=== PATIENT | female | born 1955 | race Caucasian/White ===

== ENCOUNTER → 2023-12-23 15:15 | Outpatient (REF) | payer MEDICARE, SELFPAY ==
[2023-12-23 15:38] LABS: % Basophils 0.2 % (0-2); % Eosinophils 1.1 % (0-6); % Immature Granulocytes 0.2 % (0-0.5); % Lymphocytes 38.8 % (20.5-51.1); % Monocytes 7.8 % (1.7-9.3); % Neutrophils 51.9 % (42.2-75.2); Absolute Eosinophils 0.1 10^3/uL (0-0.7); Absolute Lymphocytes 1.7 10^3/uL (1.2-3.4); Absolute Monocytes 0.4 10^3/uL (0.1-0.6); Absolute Neutrophils 2.3 10^3/uL (1.4-6.5); Hematocrit 38.2 % (37.0-47.0); Hemoglobin 12.9 g/dL (12.0-16.0); Mean Corp Hgb Conc. 33.8 g/dL (33.0-37.0); Mean Corpuscular Hgb 29.7 pg (27.0-31.0); Mean Corpuscular Volume 87.8 fL (81.0-99.0); Mean Platelet Volume 11.8 fL (7.4-10.4); Nucleated Red Blood Cells % 0 %; Platelet Count 168 10^3/uL (130-400); Red Blood Cell Count 4.35 10^6/uL (4.20-5.40); Red Cell Dist. Width 14.3 % (11.5-14.5); White Blood Cell Count 4.5 10^3/uL (4.8-10.8)
[2023-12-23 16:01] LABS: ALT (SGPT) 28 U/L (0-35); AST (SGOT) 35 U/L (14-36); Alkaline Phosphatase 66 U/L (38-126); Blood Urea Nitrogen 25 mg/dl (7-17); Carbon Dioxide 31 mmol/L (22-30); Chloride 106 mmol/L (98-107); Direct Bilirubin 0.4 mg/dl (0.0-0.4); Glucose 86 mg/dl (70-99); Sodium 138 mmol/L (135-145); Total Bilirubin 0.8 mg/dl (0.2-1.3); Total Protein 6.7 g/dl (6.3-8.2); eGFR > 60.00
== END ==
LOC: REG 15:15
PROVIDERS: ATTENDING PHYSICIAN Physician Assistant
DX: R79.89 Other specified abnormal findings of blood chemistry (principal); R19.00 Intra-abdominal and pelvic swelling, mass and lump, unspecified site
CPT/HCPCS: 36415; 80053; 82248; 85025

== ENCOUNTER → 2023-12-25 14:59 | Outpatient (REF) | payer MEDICARE, SELFPAY ==
[2023-12-25 16:38] LABS: HDL Cholesterol 85 mg/dl; LDL Cholesterol, Calculated 90 mg/dl; Total Cholesterol 187 mg/dl (50-199); Triglyceride 64 mg/dl (10-149); Very Low Density Lipoprotein 12 mg/dl (0-30)
== END ==
LOC: REG 14:59
PROVIDERS: ATTENDING PHYSICIAN Physician Assistant
DX: E78.5 Hyperlipidemia, unspecified (principal); R79.89 Other specified abnormal findings of blood chemistry
CPT/HCPCS: 36415; 80061

== ENCOUNTER → 2024-02-26 12:34 | Outpatient (REF) | payer MEDICARE, SELFPAY ==
[2024-02-26 13:43] LABS: % Basophils 0.3 % (0-2); % Eosinophils 1.6 % (0-6); % Immature Granulocytes 0.3 % (0-0.5); % Monocytes 9.9 % (1.7-9.3); % Neutrophils 49.9 % (42.2-75.2); Absolute Eosinophils 0.1 10^3/uL (0-0.7); Absolute Lymphocytes 1.5 10^3/uL (1.2-3.4); Absolute Monocytes 0.4 10^3/uL (0.1-0.6); Absolute Neutrophils 1.9 10^3/uL (1.4-6.5); Hemoglobin 14.1 g/dL (12.0-16.0); Mean Corpuscular Hgb 28.4 pg (27.0-31.0); Mean Corpuscular Volume 88.5 fL (81.0-99.0); Mean Platelet Volume 12.1 fL (7.4-10.4); Nucleated Red Blood Cells % 0 %; Platelet Count 152 10^3/uL (130-400); Red Blood Cell Count 4.97 10^6/uL (4.20-5.40); Red Cell Dist. Width 13.7 % (11.5-14.5); White Blood Cell Count 3.8 10^3/uL (4.8-10.8)
[2024-02-26 14:17] LABS: ALT (SGPT) 41 U/L (0-35); AST (SGOT) 45 U/L (14-36); Alkaline Phosphatase 52 U/L (38-126); Blood Urea Nitrogen 26 mg/dl (7-17); Calcium 9.5 mg/dl (8.4-10.2); Carbon Dioxide 30 mmol/L (22-30); Chloride 104 mmol/L (98-107); Glucose 86 mg/dl (70-99); HDL Cholesterol 65 mg/dl; LDL Cholesterol, Calculated 37 mg/dl; Sodium 139 mmol/L (135-145); Total Bilirubin 0.7 mg/dl (0.2-1.3); Total Cholesterol 116 mg/dl (50-199); Total Protein 6.7 g/dl (6.3-8.2); Triglyceride 72 mg/dl (10-149); Very Low Density Lipoprotein 14 mg/dl (0-30); eGFR > 60.00
[2024-02-26 14:21] LABS: Potassium 4.4 mmol/L (3.5-5.1)
== END ==
LOC: REG 12:34
PROVIDERS: ATTENDING PHYSICIAN Physician Assistant
DX: E78.2 Mixed hyperlipidemia (principal); I25.10 Atherosclerotic heart disease of native coronary artery without angina pectoris; R79.89 Other specified abnormal findings of blood chemistry
CPT/HCPCS: 36415; 80053; 80061; 85025

== ENCOUNTER → 2024-10-07 14:21 | Outpatient (REF) | payer MEDICARE, SELFPAY ==
[2024-10-07 16:25] LABS: % Basophils 0.2 % (0-2); % Eosinophils 0.8 % (0-6); % Immature Granulocytes 0.4 % (0-0.5); % Lymphocytes 31.3 % (20.5-51.1); % Monocytes 7.7 % (1.7-9.3); % Neutrophils 59.6 % (42.2-75.2); Absolute Lymphocytes 1.6 10^3/uL (1.2-3.4); Absolute Monocytes 0.4 10^3/uL (0.1-0.6); Hematocrit 44.1 % (37.0-47.0); Mean Corp Hgb Conc. 31.7 g/dL (33.0-37.0); Mean Corpuscular Hgb 28.5 pg (27.0-31.0); Mean Corpuscular Volume 89.6 fL (81.0-99.0); Mean Platelet Volume 12.4 fL (7.4-10.4); Nucleated Red Blood Cells % 0 %; Platelet Count 148 10^3/uL (130-400); Red Blood Cell Count 4.92 10^6/uL (4.20-5.40); Red Cell Dist. Width 14.1 % (11.5-14.5)
[2024-10-07 16:40] LABS: Alkaline Phosphatase 51 U/L (38-126); Blood Urea Nitrogen 25 mg/dl (7-17); Carbon Dioxide 29 mmol/L (22-30); Chloride 104 mmol/L (98-107); Glucose 85 mg/dl (70-99); Potassium 4.5 mmol/L (3.5-5.1); Sodium 143 mmol/L (135-145); eGFR > 60.00
[2024-10-07 16:41] LABS: ALT (SGPT) 31 U/L (0-35); AST (SGOT) 38 U/L (14-36); Albumin 4.3 g/dl (3.5-5.0); Calcium 8.9 mg/dl (8.4-10.2); HDL Cholesterol 83 mg/dl; LDL Cholesterol, Calculated 58 mg/dl; Total Bilirubin 0.8 mg/dl (0.2-1.3); Total Cholesterol 151 mg/dl (50-199); Total Protein 6.9 g/dl (6.3-8.2); Triglyceride 52 mg/dl (10-149); Very Low Density Lipoprotein 10 mg/dl (0-30)
[2024-10-07 17:12] LABS: TSH Reflex To Free T4 2.17 uIU/ml (0.47-4.68)
== END ==
LOC: REG 14:21
PROVIDERS: ATTENDING PHYSICIAN Physician Assistant
DX: R10.31 Right lower quadrant pain (principal); E78.2 Mixed hyperlipidemia; I25.10 Atherosclerotic heart disease of native coronary artery without angina pectoris; Z95.5 Presence of coronary angioplasty implant and graft; R79.89 Other specified abnormal findings of blood chemistry; Z13.29 Encounter for screening for other suspected endocrine disorder
CPT/HCPCS: 36415; 80053; 80061; 84443; 85025

== ENCOUNTER 2024-10-11 16:53 | Emergency (ER) | payer MEDICARE, SELFPAY ==
[2024-10-11 16:54] VITALS: BP 139/96
--- NOTE | 2024-10-11 17:41 | ED.GENMED ---
History of Present Illness
General
Chief Complaint: Eye Problems
Source: patient
Exam Limitations: none
Time Seen by Provider: 10/11/24 17:07
Nursing documentation reviewed up to this point in time: agreed with
History of Present Illness
History of Present Illness:
Patient states she was turning over a stool and was hit on right eye by leg of stool Notes lateral subconjunctival hemorrhage. Denies any vision changes. Brought to ED by spouse for eval. Injury occurred just [employer]
Past History
Past History
ED Past Medical History: CAD, GERD, Hypercholesterolemia, SC and Valvular disease (Aortic stenosis)
Social History
Tobacco: Non-smoker
Living: with family
Family History
Family History: CAD
Review of Systems
Review of Systems
Allergies reviewed?: Yes
All Other Systems: ROS reviewed and negative except as documented in HPI and ROS
Constitutional: Reports no symptoms
EENT: Reports other (small subconjuntival hemorrhage right lateral conjunctiva)
Respiratory: Reports no symptoms
Cardiac: Reports no symptoms
ABD/GI: Reports no symptoms
: Reports no symptoms
Musculoskeletal: Reports no symptoms
Skin: Reports no symptoms
Neurological: Reports no symptoms
Psychiatric: Reports no symptoms
Phy Exam
General Physical Exam
General Presentation: well appearing and no apparent distress
General age: appears stated age
General Skin: warm and dry
General Habitus: normal
General Mental: alert
Eye Exam
Eye Exam: PERRL, EOMI, globe normal and other (tonometry reading 18 right eye. Small conjunctival hemorrhage lateral conjunctiva right eye)
Cornea Exam: abrasion: Right (8 oclock)
Type of Exam: simple and fluorescein
Musculoskeletal Exam
Musculoskeletal Exam: full ROM
Skin Exam
Skin Exam: normal color, warm/dry and no rash
Psychiatric Exam
Psychiatric Exam: normal mood/affect
Course
Orders/Labs/Results
Orders:
Orders
10/11/24 17:32
Fluorescein Sodium [Ful-Kimberly] 1 mg .ROUTE .STK-MED ONE
Tetracaine HCl [Tetracaine 0.5% Ophthalmic Solution] 1 drop .ROUTE .STK-MED ONE
10/11/24 17:38
Tobramycin 0.3% [Tobrex 0.3% Eye Drops] See Dose Instructions OPHTH NOW STA
Vital Signs
Initial and Last Documented VS:
Initial Vital Signs
Temp Pulse Resp BP Pulse Ox
99.3 F 79 16 139/96 98
10/11/24 16:54 10/11/24 16:54 10/11/24 16:54 10/11/24 16:54 10/11/24 16:54
Last Documented Vital Signs
Temp Pulse Resp BP Pulse Ox
99.3 F 79 16 139/96 98
10/11/24 16:54 10/11/24 16:54 10/11/24 16:54 10/11/24 16:54 10/11/24 16:54
*Critical Care Note
Total Time (30-74mins, 75-104mins- exclusive of procedures): Not Applicable
ED Attending Note
-
Portions of this chart may have been created with voice recognition software.� Occasional wrong word or��sound alike� substitutions may have occurred due to the inherent limitations of voice recognition software.
Discharge Plan
Departure
Patient Disposition: Home (Routine Discharge)
Date of Disposition: 10/11/24
Time of Disposition: 17:38
Patient with high blood pressure during this ER visit?: No
Condition: Good
Covid-19: Not Applicable
Discharge Problem:
Abrasion, corneal, Subconjunctival hemorrhage
Instructions: Corneal Abrasion (DC), How to Use Eye Drops, Subconjunctival Hemorrhage
Prescriptions:
New
tobramycin 0.3 % drops
1 drp ophthalmic (eye) Q4HWA Qty: 5 0RF
No Action
cyanocobalamin (vitamin B-12) 1,000 MCG tablet
1,000 mcg PO DAILY
magnesium 250 MG tablet
500 mg PO DAILY
vzbeholtmni-hpdwmslbc-ngf C-Mn 1 TAB tablet
1 tab PO DAILY
cholecalciferol (vitamin D3) 1,000 UNITS tablet
1,000 units PO DAILY
multivitamin with folic acid [Tab-A-Freda] 1 TABLET tablet
1 tab PO DAILY
turmeric-turmeric root extract 1 EACH capsule
2 ea PO DAILY
atorvastatin 80 MG tablet
80 mg PO QPM Qty: 30 5RF
nitroglycerin 0.4 MG tablet, sublingual
0.4 mg sublingual [id number] PRN (Reason: chest pain) Qty: 25 3RF
aspirin 81 MG tablet,chewable
81 mg PO DAILY 0RF
metoprolol succinate 25 MG tablet extended release 24 hr
25 mg PO DAILY Qty: 30 5RF
ticagrelor [Brilinta] 90 MG tablet
90 mg PO BID Qty: 60 5RF
hydrocodone-acetaminophen 1 TABLET tablet
1 tab PO Q4HPRN PRN (Reason: pain) Qty: 12 0RF
Referrals:
Alba Paul MD [Non-Admitting Privileges] - Follow up in 2-3 days
Interventions
Interventions:
*Risk Screen - Suicide Last Done: 10/11/24 16:54
*General Assessment Last Done: 10/11/24 16:54
*Neglect/Abuse Screening Last Done: 10/11/24 16:54
ED- Fall Risk Assessment Last Done: 10/11/24 17:05
*Nursing Disposition Last Done: 10/11/24 17:48
Discharge Date and Time
Discharge Date/Time: 10/11/24 17:48
Print Language: CO[place] R[place]
[2024-10-11] MEDS: TOBREX 0.3% EYE DROPS 1 DROP OPHTH (17:45)
== END 2024-10-11 17:48 | disposition home or self-care (01) ==
LOC: EMR 16:53
PROVIDERS: EMERGENCY PHYSICIAN Emergency Medicine; FAMILY PHYSICIAN Physician Assistant
DX: S05.01XA Injury of conjunctiva and corneal abrasion without foreign body, right eye, initial encounter (principal); H11.31 Conjunctival hemorrhage, right eye; W22.09XA Striking against other stationary object, initial encounter; I25.10 Atherosclerotic heart disease of native coronary artery without angina pectoris; E78.00 Pure hypercholesterolemia, unspecified; I25.2 Old myocardial infarction; K21.9 Gastro-esophageal reflux disease without esophagitis
CPT/HCPCS: 99283

== ENCOUNTER → 2025-01-13 13:48 | Outpatient (REF) | payer MEDICARE, SELFPAY | LOC: RCS 13:48 | PROVIDERS: ATTENDING PHYSICIAN Internal Medicine Cardiovascular Disease; FAMILY PHYSICIAN Physician Assistant Medical | DX: Z95.2 Presence of prosthetic heart valve (principal); I25.10 Atherosclerotic heart disease of native coronary artery without angina pectoris; I44.2 Atrioventricular block, complete | CPT/HCPCS: 93306 ==

== ENCOUNTER 2025-03-23 23:06 | Day surgery (SDC) | payer MEDICARE, SELFPAY ==
[2025-03-23] VITALS (9 sets, daily range): BP systolic 100–177; BP diastolic 61–105
--- NOTE | 2025-03-23 07:37 | ED.GENMED ---
History of Present Illness
General
Chief Complaint: Abdominal Pain
Time Seen by Provider: 03/23/25 07:31
History of Present Illness
History of Present Illness:
69-year-old female with history of hypertension, hyperlipidemia, and coronary artery disease status post ME presents to the emergency department for evaluation of sudden onset of left lower quadrant/left pelvic pain that began this morning waking
her from sleep. Pain is sharp, constant, nonradiating. No fevers, chills, or lower urinary tract voiding symptoms. Reports multiple episodes of dry heaving as well. No history of abdominal surgery
Past History
Past History
ED Past Medical History: CAD, GERD, Hypercholesterolemia, ME and Valvular disease (Aortic stenosis)
Social History
Tobacco: Non-smoker
Living: with family
Family History
Family History: CAD
Review of Systems
Review of Systems
Allergies reviewed?: Yes
All Other Systems: ROS reviewed and negative except as documented in HPI and ROS
Phy Exam
Physical Exam
Physical Exam:
GEN: Well appearing, NAD, WDWN
HEENT: Oral mucosa moist, no scleral icterus
Cardiac: Regular rate
Lung: No respiratory distress, no tachypnea
Abdomen: Soft, grossly nontender to palpation, no rigidity
MSK: No gross deformity or injuries
Skin: Good color, no pallor or jaundice, no rashes
Neuro: AO x3, moves all extremities freely
Psych: Calm, cooperative
Course
Orders/Labs/Results
Orders:
Orders
03/23/25 07:29
Complete Blood Count/With Diff Urgent
Comprehensive Metabolic Panel Urgent
Lipase Urgent
03/23/25 07:36
CT Abd/pel Without Iv Or Oral Urgent
Comment:
Reason For Exam: LLQ pain
0.9% Sodium Chloride 1000 ml [Nss] 1,000 ml IV BOLUS
Ketorolac [Toradol] 15 mg IV NOW STA
Ondansetron Injectable [Zofran] 4 mg IV NOW STA
03/23/25 07:59
Morphine Sulfate 4 mg IV NOW STA
03/23/25 08:57
HYDROmorphone [Dilaudid] 0.5 mg IV NOW STA
03/23/25 10:17
Urinalysis Reflex To Culture Urgent
Date Specimen was Collected: 03/23/25
Time Specimen was Collected: 07:50
Urine Microscopic Reflex Cult Urgent
Urine Culture Urgent
RYAN Source: U
Specimen Description:
Date Specimen was Collected: 03/23/25
Time Specimen was Collected: 07:50
Abnormal Lab Results
03/23/25 03/23/25
07:29 10:17
MPV 11.7 H fL
(7.4-10.4)
Absolute Lymphs (auto) 3.8 H 10^3/uL
(1.2-3.4)
Absolute Monos (auto) 0.7 H 10^3/uL
(0.1-0.6)
Neutrophils % 39.0 L %
(42.2-75.2)
Potassium 3.4 L mmol/L
(3.5-5.1)
Chloride 108 H mmol/L
(98-107)
BUN 32 H mg/dl
(7-17)
Glucose 107 H mg/dl
(70-99)
Lipase 454 H U/L
(23-300)
Ur Occult Blood Reflex 4+ A
(Negative)
Leukocyte Esterase Rfl 1+ A
(Negative)
Urine RBC >100 A /HPF
(0-2)
Urine Albumin (Reflex) 2+ A
(Neg - Trace)
03/23/25 07:29
03/23/25 07:29
Vital Signs
Initial and Last Documented VS:
Initial Vital Signs
Pulse Resp BP Pulse Ox
105 20 177/105 94
03/23/25 07:17 03/23/25 07:17 03/23/25 07:17 03/23/25 07:17
Last Documented Vital Signs
Pulse Resp BP Pulse Ox
105 20 131/73 99
03/23/25 07:17 03/23/25 07:17 03/23/25 08:05 03/23/25 08:15
MDM/Problems Addressed
MDM/Problems Addressed:
Patient had persistent pain despite numerous doses of opioids and NSAIDs. She was seen in consultation by urology and the decision has been made to take her for operative intervention today. No indication for IV antibiotics at this point,
clinically stable
*Critical Care Note
Total Time (30-74mins, 75-104mins- exclusive of procedures): Not Applicable
ED Attending Note
-
Portions of this chart may have been created with voice recognition software.� Occasional wrong word or��sound alike� substitutions may have occurred due to the inherent limitations of voice recognition software.
Discharge Plan
Departure
Patient Disposition: OR
Date of Disposition: 03/23/25
Time of Disposition: 12:41
Presentation/result/management discussed w/ accepting MD/DO: [facility]
Discharge Problem:
Ureterolithiasis
Prescriptions:
No Action
cyanocobalamin (vitamin B-12) 1,000 MCG tablet
1,000 mcg PO DAILY
magnesium 250 MG tablet
500 mg PO DAILY
cholecalciferol (vitamin D3) 1,000 UNITS tablet
1,000 units PO DAILY
multivitamin with folic acid [Tab-A-Freda] 1 TABLET tablet
1 tab PO HS
nitroglycerin 0.4 MG tablet, sublingual
0.4 mg sublingual [id number] PRN (Reason: chest pain) Qty: 25 3RF
aspirin 81 MG tablet,chewable
81 mg PO DAILY 0RF
metoprolol succinate 25 MG tablet extended release 24 hr
25 mg PO DAILY Qty: 30 5RF
coenzyme Q10 [Co Q-10] 100 mg Capsule
100 mg PO HS
rosuvastatin 5 mg tablet
5 mg PO .Q48H IN THE EVENING
hyaluronate sodium-vit C 20-60 mg Capsule
1 cap PO DAILY
Referrals:
Bethanie Chandler PA-C [Family Provider] -
Interventions
Interventions:
*Risk Screen - Suicide Last Done: 03/23/25 07:17
*General Assessment Last Done: 03/23/25 07:17
*Neglect/Abuse Screening Last Done: 03/23/25 07:17
*ED- Fall Risk Assessment Last Done: 03/23/25 08:21
*ED COVID-19 Vaccine History Last Done: 03/23/25 08:21
KP-Apasvv-Mbwqaxhuay Assessment Last Done: 03/23/25 08:21
Discharge Date and Time
Print Language: FINNISH
[2025-03-23 07:39] LABS: % Basophils 0.3 % (0-2); % Eosinophils 1.8 % (0-6); % Immature Granulocytes 0.3 % (0-0.5); % Lymphocytes 49.4 % (20.5-51.1); % Monocytes 9.2 % (1.7-9.3); Absolute Eosinophils 0.1 10^3/uL (0-0.7); Absolute Lymphocytes 3.8 10^3/uL (1.2-3.4); Absolute Monocytes 0.7 10^3/uL (0.1-0.6); Hematocrit 41.3 % (37.0-47.0); Hemoglobin 13.8 g/dL (12.0-16.0); Mean Corp Hgb Conc. 33.4 g/dL (33.0-37.0); Mean Corpuscular Hgb 28.9 pg (27.0-31.0); Mean Corpuscular Volume 86.6 fL (81.0-99.0); Mean Platelet Volume 11.7 fL (7.4-10.4); Nucleated Red Blood Cells % 0 %; Platelet Count 167 10^3/uL (130-400); Red Blood Cell Count 4.77 10^6/uL (4.20-5.40); Red Cell Dist. Width 14.1 % (11.5-14.5); White Blood Cell Count 7.7 10^3/uL (4.8-10.8)
[2025-03-23] MEDS: ZOFRAN 4 MG IV ×2 (07:56→22:15)
[2025-03-23] MEDS: TORADOL 15 MG IV (07:56)
[2025-03-23] MEDS: NSS 1000 IV (07:56)
[2025-03-23] MEDS: MORPHINE SULFATE 4 MG IV (08:02)
[2025-03-23 08:16] LABS: ALT (SGPT) 25 U/L (0-35); AST (SGOT) 28 U/L (14-36); Alkaline Phosphatase 64 U/L (38-126); Blood Urea Nitrogen 32 mg/dl (7-17); Calcium 9.8 mg/dl (8.4-10.2); Carbon Dioxide 25 mmol/L (22-30); Chloride 108 mmol/L (98-107); Glucose 107 mg/dl (70-99); Lipase 454 U/L (23-300); Potassium 3.4 mmol/L (3.5-5.1); Sodium 143 mmol/L (135-145); Total Bilirubin 0.6 mg/dl (0.2-1.3); Total Protein 6.7 g/dl (6.3-8.2); eGFR > 60.00
[2025-03-23] MEDS: DILAUDID 0.5 MG IV (09:11)
[2025-03-23 10:27] LABS: Urine Albumin 2+ (Neg - Trace); Urine Bilirubin Negative (Negative); Urine Character Cloudy (Clear); Urine Color Yellow; Urine Glucose Negative (Negative); Urine Ketone Negative (Negative); Urine Leukocyte 1+ (Negative); Urine Nitrite Negative (Negative); Urine Occult Blood 4+ (Negative); Urine Urobilinogen Negative (Neg - 1+)
[2025-03-23 11:11] LABS: Urine Amorphous Seen
[2025-03-23 11:12] LABS: Urine Red Blood Cell >100 /HPF (0-2)
--- NOTE | 2025-03-23 17:10 | HP.FOC2 ---
Focused History & Physical
Chief Complaint
HPI:
Chief Complaint: L flank pain
HPI / Indication for Planned Procedure:
69-year-old female with history of hypertension, hyperlipidemia, and coronary artery disease status post LA presents to the emergency department for evaluation of sudden onset of left lower quadrant/left pelvic pain that began this morning waking
her from sleep. Pain is sharp, constant, nonradiating. No fevers, chills, or lower urinary tract voiding symptoms. Reports multiple episodes of dry heaving as well. No history of abdominal surgery
Found on CT to have moderate size L prox ureteral stones as well as a large L renal stone
Not able to get comfortable for trial of passage in the ER
No signs or criteria for sepsis
Prior hx of kidney stone 25 years ago
No other urologic hx
Relevant Past Medical History: Coronary Artery Disease and Other (kidney stone)
Relevant Social History: Negative
Relevant Family History: Negative
Relevant Past Surgical History: Negative
Review of Systems
Review of Pertinent Systems: All Systems Negative
Medication
See Medication form for detailed medications: Yes
Medication List (including Herbals & OTC):
cholecalciferol (vitamin D3) 25 mcg (1,000 unit) tablet 1,000 units PO DAILY Supplement 09/20/20
cyanocobalamin (vitamin B-12) 1,000 mcg tablet 1,000 mcg PO DAILY Supplement 09/20/20
magnesium 250 mg tablet 500 mg PO DAILY Supplement 09/20/20
multivitamin with folic acid 400 mcg tablet (Tab-A-Freda) 1 tab PO HS Supplement 09/20/20
aspirin 81 mg chewable tablet 81 mg PO DAILY 09/22/20
metoprolol succinate 25 mg tablet,extended release 24 hr 25 mg PO DAILY #30 tabs 09/22/20
nitroglycerin 0.4 mg sublingual tablet 0.4 mg sublingual [id number] PRN chest pain #25 tabs 09/22/20
coenzyme Q10 100 mg capsule (Co Q-10) 100 mg PO HS Supplement 03/23/25
hyaluronate sodium 20 mg-vit C 60 mg capsule 1 cap PO DAILY Supplement 03/23/25
rosuvastatin 5 mg tablet 5 mg PO .Q48H IN THE EVENING High Cholesterol 03/23/25
Medications Reviewed: Yes
Allergies and Reactions
Patient has Allergies: Yes
Noted Allergies and Reactions:
Allergy/AdvReac Type Severity Reaction Status Date / Time
sulfamethoxazole Allergy Hives Verified 03/23/25 07:21
[From Bactrim]
trimethoprim [From Bactrim] Allergy Hives Verified 03/23/25 07:21
Pertinent Physical Exam
All Other Systems: Negative
Head/Neck: Normal
Lungs: Normal
Abdomen: Other (CVAT on L)
Extremities: Normal
Diagnosis / Assessment
69F with intractable pain and nausea from L ureteral stone, also with large 1.5cm L renal stone
Plan / Procedure
- NPO for OR today
- Plan for cystoscopy, L ureteral stent placement. Possible ureteroscopy if ureter is wide and allows access sheath, but will probably need a second procedure for stone removal given large volume
- IV pain control
- IVF
- Ceftriaxone ppx
- Likely discharge home SDS post procedure
Anesthesia/Sedation to be done by Anesthesia Provider: Yes
[2025-03-23] MEDS: STERILE WATER FOR INJECTION 10 ML IV (17:23)
[2025-03-23] MEDS: ROCEPHIN 1000 MG IV (17:24)
[2025-03-23] MEDS: DILAUDID 1 MG IV (22:15)
[2025-03-24 00:15] VITALS: BP 133/91; BP 96/65
[2025-03-24 00:16] VITALS: BP 96/65
[2025-03-24 00:30] VITALS: BP 105/60
[2025-03-24 00:45] VITALS: BP 112/64
[2025-03-24] MEDS: Pyridium 200 MG PO (00:58)
[2025-03-24 01:00] VITALS: BP 114/67
[2025-03-24 01:20] VITALS: BP 126/64
== END 2025-03-23 23:55 | disposition home or self-care (01) ==
LOC: SDS 23:06
PROVIDERS: Physician Assistant; ATTENDING PHYSICIAN Urology; EMERGENCY PHYSICIAN Student in an Organized Health Care Education/Training Program; FAMILY PHYSICIAN Physician Assistant
DX: N20.1 Calculus of ureter (principal); R10.32 Left lower quadrant pain; Z87.442 Personal history of urinary calculi
CPT/HCPCS: 52332; 74018; 74176; 76000; 80053; 81003; 81015; 83690; 85025; 87086; 96361; 96374; 96375; 99285; A4300; C1758; C1769; C1894; C2617

== ENCOUNTER 2025-04-09 06:27 | Day surgery (SDC) | payer MEDICARE, SELFPAY ==
[2025-04-09] VITALS (8 sets, daily range): BP systolic 108–124; BP diastolic 68–75; BMI 23.9
[2025-04-09] MEDS: NORMOSOL-R/PLASMALYTE-A 1000 IV (11:50)
[2025-04-09] MEDS: EMEND 40 MG PO (12:21)
[2025-04-15 08:18] LABS: Stone Analysis Mass 175 mg
== END 2025-04-09 15:50 | disposition home or self-care (01) ==
LOC: SDS 06:27
PROVIDERS: ATTENDING PHYSICIAN Urology
DX: N20.2 Calculus of kidney with calculus of ureter (principal)
CPT/HCPCS: 52356; 74018; 76000; 82365; A4300; C1758; C1769; C1894; C2617

== ENCOUNTER 2025-09-29 06:19 | Day surgery (SDC) | payer MEDICARE, SELFPAY | END 2025-09-29 12:05 | disposition home or self-care (01) | LOC: GI 06:19 | PROVIDERS: ATTENDING PHYSICIAN Surgery | DX: Z12.11 Encounter for screening for malignant neoplasm of colon (principal); K64.9 Unspecified hemorrhoids; D12.3 Benign neoplasm of transverse colon | CPT/HCPCS: 45385; 45380; 88305 ==

== ENCOUNTER → 2025-10-20 12:24 | Outpatient (REF) | payer MEDICARE, SELFPAY | LOC: WDC 12:24 | PROVIDERS: ATTENDING PHYSICIAN Physician Assistant | DX: Z12.31 Encounter for screening mammogram for malignant neoplasm of breast (principal) | CPT/HCPCS: 77063; 77067 ==

== ENCOUNTER → 2025-11-08 14:04 | Outpatient (REF) | payer MEDICARE, SELFPAY | LOC: RAD 14:04 | PROVIDERS: ATTENDING PHYSICIAN Physician Assistant | DX: M85.80 Other specified disorders of bone density and structure, unspecified site (principal); M81.0 Age-related osteoporosis without current pathological fracture | CPT/HCPCS: 77080 ==